=== PATIENT | female | born 1930 | race Caucasian/White ===

== ENCOUNTER 2016-10-09 07:16 | Emergency (ER) | payer OTHER, BC ==
[~2016-10-09] VITALS: Ht 167.6 cm; Wt 73.5 kg
[2016-10-09] MEDS ORDERED: LOVASTATIN40 MG PO (09:12)
[2016-10-09] MEDS ORDERED: XALATAN2.5 ML OPHTHALMIC (09:12)
[2016-10-09] MEDS ORDERED: LOSARTAN POTAS100 MG PO (09:12)
[2016-10-09] MEDS ORDERED: PRILOSEC 10MG C10 MG PO (09:13)
[2016-10-09] MEDS ORDERED: IBUPROFEN 400400 M2 PO ×2 (09:13→10:51)
[2016-10-09] MEDS ORDERED: CALCIUM 600 +1 EAC1 PO (09:14)
[2016-10-09] MEDS ORDERED: CENTRUM SILVER1 EAC2 PO (09:14)
[2016-10-09] MEDS ORDERED: METAMUCIL PAC1 UDPKT PO (09:15)
[2016-10-09] MEDS ORDERED: FISH OIL 1,001000 M2 PO (09:15)
[2016-10-09] MEDS ORDERED: XANAX 0.25 MG0.25 MG PO (09:16)
[2016-10-09] MEDS ORDERED: SENOKOT-S1 TA1 PO (10:51)
[2016-10-09] MEDS ORDERED: NORCO 5-325 TA1 EACH PO (10:51)
[2016-10-09] MEDS ORDERED: ZANAFLEX4 M1 PO (10:51)
[2016-10-09 11:07] VITALS: BP 155/74
== END 2016-10-09 11:08 | disposition home or self-care (01) ==
LOC: ER 07:16
DX: M54.42 Lumbago with sciatica, left side (principal); I10 Essential (primary) hypertension; E78.5 Hyperlipidemia, unspecified; Z88.1 Allergy status to other antibiotic agents; Z88.0 Allergy status to penicillin; Z88.2 Allergy status to sulfonamides; Z88.8 Allergy status to other drugs, medicaments and biological substances

== ENCOUNTER → 2016-10-24 | Outpatient (CLI) | payer OTHER, BC ==
[~2016-10-24] MED LIST: CALCIUM 600 +1 EAC1 PO; CENTRUM SILVER1 EAC2 PO; FISH OIL 1,001000 M2 PO; IBUPROFEN 400400 M2 PO; LOSARTAN POTAS100 MG PO; LOVASTATIN40 MG PO; METAMUCIL PAC1 UDPKT PO; NORCO 5-325 TA1 EACH PO; PRILOSEC 10MG C10 MG PO; SENOKOT-S1 TA1 PO; XALATAN2.5 ML OPHTHALMIC; XANAX 0.25 MG0.25 MG PO; ZANAFLEX4 M1 PO
== END ==
LOC: RAD 13:33
DX: R05 Cough (principal)

== ENCOUNTER → 2017-01-17 | Outpatient (CLI) | payer OTHER, BC ==
--- NOTE | ~2017-01-17 | EKG ---
[place] [address] [facility] [employer] [place] [address] ELECTROCARDIOGRAM REPORT Name: ISABELLA LOWLINE SUSY [id number] Admission: 01/17/17 Attend Phys: Genesis Ziegler MD Discharge: Date of : 34 Report #: [id number] THIS REPORT FOR: //name// [facility] Test Date: 2017-01-17 Test Time: 13:06:34 Pat Name: ALICE LOW Department: Room: Gender: F Physician Scientist: Harika ALBERT : 1930 Requested By: Genesis Ziegler Order Number: [id number] MD: Charles Handley Measurements Intervals [place] Rate: 58 P: -53 VT: 159 QRS: -19 QRSD: 91 T: 54 QT: 425 QTc: 418 Interpretive Statements Sinus bradycardia Normal tracing No previous ECG available for comparison Electronically Signed On 01-18-2017 8:55:46 CDT by Charles Handley [email or web address] <ELECTRONICALLY SIGNED> By: Charles Handley MD, [facility] 01/18/17 [id number] Charles Handley MD, FACC /EPI
== END ==
LOC: CV 12:39
DX: R00.1 Bradycardia, unspecified (principal); R42 Dizziness and giddiness

== ENCOUNTER 2019-03-08 13:45 | Emergency (ER) | payer OTHER, BC ==
[~2019-03-08] VITALS: Ht 165.1 cm; Wt 77.1 kg
[2019-03-08 14:19] LABS: ABSOLUTE NEUTROPHILS 4.8 thou/uL (1.4-8.2); BASOPHILS 0.7 % (0.0-2.0); EOSINOPHILS 2.6 % (0.0-3.0); HEMATOCRIT 39.2 % (37.0-47.0); LYMPHOCYTES 25.9 % (24.0-44.0); MCH 31.3 pg (26.0-34.0); MCHC 33.2 g/dL (28.0-37.0); MCV 94.1 fL (80.0-100.0); MONOCYTES 6.4 % (1.0-8.0); PLATELET COUNT 244 thou/uL (150-400); POLYS 64.4 % (36.0-66.0); RBC 4.16 mil/uL (4.20-5.00); RDW 13.9 % (10.5-14.5); WBC 7.5 thou/uL (4.0-11.0)
[2019-03-08 14:23] LABS: URINE BILIRUBIN NEGATIVE (Negative); URINE BLOOD NEGATIVE (Negative); URINE CLARITY CLEAR; URINE COLOR YELLOW; URINE GLUCOSE-RANDOM* NEGATIVE (Negative); URINE KETONES NEGATIVE (Negative); URINE LEUKOCYTES-REFLEX NEGATIVE (Negative); URINE NITRITE-REFLEX NEGATIVE (Negative); URINE PROTEIN (DIPSTICK) NEGATIVE (Negative); URINE SPECIFIC GRAVITY 1.015 (1.005-1.035); URINE UROBILINOGEN 0.2 E.U./dl (0.2-1.0)
[2019-03-08 14:34] LABS: ANION GAP 9 mmol/L (7-16); BUN 22 mg/dL (7-18); CALCIUM 9.8 mg/dL (8.5-10.1); CHLORIDE 104 mmol/L (98-107); CO2 28 mmol/L (21-32); CREATININE 0.9 mg/dL (0.6-1.0); GLUCOSE 81 mg/dL (74-106); POTASSIUM 4.1 mmol/L (3.5-5.1); SODIUM 141 mmol/L (136-145)
[2019-03-08 14:44] LABS: ALBUMIN 3.7 g/dL (3.4-5.0); SGOT 23 U/L (15-37); SGPT 23 U/L (30-65); TOTAL BILIRUBIN 0.5 mg/dL (<0.1-1.0); TOTAL PROTEIN 7.4 g/dL (6.4-8.2); TROPONIN-I <0.06 ng/mL (<0.06)
[2019-03-08 17:24] VITALS: BP 188/88
--- NOTE | 2019-03-10 08:32 | EKG ---
[address] [address] ELECTROCARDIOGRAM REPORT Name: ALICE LOW [id number] Admission: 03/08/19 Attend Phys: Discharge: 03/08/19 Date of : 34 Report #: [id number] THIS REPORT FOR: //name// [facility] ED Test Date: 2019-03-08 Test Time: 15:18:10 Pat Name: ALICE LOW Department: Room: Gender: F Chief Psychologist: vt : 1930 Requested By: Young Zarco Order Number: [id number] MD: Charles Handley Measurements Intervals [place] Rate: 53 P: 51 NE: 188 QRS: -20 QRSD: 91 T: 39 QT: 440 QTc: 414 Interpretive Statements Sinus bradycardia Left ventricular hypertrophy Compared to ECG 01/17/2017 13:06:34 No significant change was found Electronically Signed On 03-10-2019 8:32:25 CDT by Charles Handley [email or web address] <ELECTRONICALLY SIGNED> By: Charles Handley MD, [facility] 03/10/19 0832 D: 10/1517 151 Charles Handley MD, FACC /EPI
== END 2019-03-08 18:30 | disposition home or self-care (01) ==
LOC: ER 13:45
PROVIDERS: Physician Assistant
DX: R53.1 Weakness (principal); I10 Essential (primary) hypertension; E78.00 Pure hypercholesterolemia, unspecified; Z88.0 Allergy status to penicillin; Z88.2 Allergy status to sulfonamides; Z88.8 Allergy status to other drugs, medicaments and biological substances